=== PATIENT | male | born 1985 | race Caucasian/White ===

== ENCOUNTER 2021-02-06 20:32 | Emergency (ER) | payer BC ==
[~2021-02-06] VITALS: Ht 188 cm; Wt 99.8 kg
[2021-02-06 21:49] LABS: ABSOLUTE EOSINOPHILS 0.1 thou/uL (0.0-0.7); ABSOLUTE LYMPHOCYTES 1.6 thou/uL (0.8-5.3); ABSOLUTE MONOCYTES 0.7 thou/uL (0.0-1.2); ABSOLUTE NEUTROPHILS 6.5 thou/uL (1.6-8.1); BASOPHILS 0.5 %; EOSINOPHILS 1.5 %; HEMATOCRIT 43.5 % (42.0-52.0); HEMOGLOBIN 14.6 gm/dL (14.0-18.0); LYMPHOCYTES 17.8 %; MCH 30.1 pg (26.0-34.0); MCHC 33.5 g/dL (28.0-37.0); MCV 89.8 fL (80.0-100.0); MONOCYTES 7.8 %; MPV 8.7 fl. (7.2-11.1); NUCLEATED RBCS 0 /100WBC; PLATELET COUNT* 192 thou/uL (150-400); POLYS 72.4 %; RBC 4.84 mil/uL (4.50-6.00); WBC 8.9 thou/uL (4.0-11.0)
[2021-02-06 21:57] LABS: CALCIUM 9.1 mg/dL (8.5-10.1); POTASSIUM 3.8 mmol/L (3.5-5.1)
[2021-02-06 22:02] LABS: TOTAL BILIRUBIN 0.4 mg/dL (<0.1-1.0); TOTAL PROTEIN 7.4 g/dL (6.4-8.2)
[2021-02-06] MEDS ORDERED: CARAFATE 1 GM TA1 GM PO (23:07)
[2021-02-06] MEDS ORDERED: OMEPRAZOLE20 M2 PO (23:07)
[2021-02-06 23:15] VITALS: BP 159/94
--- NOTE | 2021-02-07 10:17 | EKG ---
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
== END 2021-02-06 23:15 | disposition home or self-care (01) ==
LOC: M.ERS 20:32
PROVIDERS: Personal Emergency Response Attendant
DX: K29.70 Gastritis, unspecified, without bleeding (principal)